=== PATIENT | male | born 1975 | race American Indian/Alaskan Native ===

== ENCOUNTER 2021-12-16 17:28 | Observation (INO) | payer OTHER ==
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
[2021-12-16 18:49] LABS: Basophils % (Auto) 0.4 % (0.0-1.8); Eosinophils % (Auto) 0.3 % (0.0-4.3); Hematocrit 46.9 % (35.5-45.6); Lymphocytes # (Auto) 0.7 K/mm3 (1.2-5.4); Lymphocytes % (Auto) 5.8 % (13.4-35.0); Mean Corpuscular HGB Conc 32 % (32-34); Mean Corpuscular Volume 72 fl (84-94); Monocytes % (Auto) 8.1 % (0.0-7.3); Platelet Count 210 K/mm3 (140-440); Red Cell Distribution Width 14.9 % (13.2-15.2)
[2021-12-16 18:58] LABS: INR 0.93 (0.87-1.13)
[2021-12-16 18:59] LABS: Partial Thromboplastin Time 33.2 Sec. (24.2-36.6)
--- NOTE | 2021-12-16 19:10 | XRay Report ---
CHEST 1 VIEW 12/16/2021 6:52 PM INDICATION / CLINICAL INFORMATION: Dyspnea. COMPARISON: None available. FINDINGS: SUPPORT DEVICES: None. HEART / MEDIASTINUM: No significant abnormality. LUNGS / PLEURA: Bilateral interstitial opacity left greater than right. No pneumothorax. ADDITIONAL FINDINGS: No significant additional findings. IMPRESSION: Interstitial opacity. Edema versus atypical infection. Signer Name: Cortez Higginbotham MD Signed: 12/16/2021 7:06 PM Workstation Name: [id number]
[2021-12-16 19:19] LABS: Alanine Aminotransferase 18 units/L (7-56); Albumin 4.6 g/dL (3.9-5); BUN/Creatinine Ratio 12; Blood Urea Nitrogen 20 mg/dL (9-20); Hemolysis Index 10
--- NOTE | 2021-12-16 20:12 | Cat Scan Report ---
CTA CHEST WITH CONTRAST INDICATION / CLINICAL INFORMATION: hypoxia hemoptysis. TECHNIQUE: Axial CT images were obtained through the chest after injection of IV contrast. 3 plane NM P and/or 3D reconstructions were produced. All CT scans at this location are performed using CT dose reduction for ALARA by means of automated exposure control. COMPARISON: None available. FINDINGS: PULMONARY ARTERIES: No pulmonary emboli. THORACIC AORTA: No significant abnormality. HEART: No significant abnormality. CORONARY ARTERY CALCIFICATION: Mild. MEDIASTINUM / DIONICIO: Mild prominence of mediastinal lymph nodes, likely reactive. PLEURA: No pleural effusion. No pneumothorax. LUNGS: There are scattered groundglass opacities throughout the bilateral lungs, most confluent withi n the bilateral lower lobes. ADDITIONAL FINDINGS: None. UPPER ABDOMEN: No acute findings. SKELETAL STRUCTURES: No significant osseous abnormality. IMPRESSION: 1. No CT evidence for pulmonary embolism. 2. Scattered groundglass opacities which can be seen with atypical infectious process versus diffuse inflammatory process. Signer Name: Shahriar Pham DO Signed: 12/16/2021 8:07 PM Workstation Name: [id number]
[2021-12-16] MEDS ORDERED: ONDANSETRON 4 MG/2 ML INJ IV PRN (22:28)
[2021-12-16] MEDS ORDERED: HYDROmorphone 1 MG/1 ML INJ IV PRN (22:28)
[2021-12-16] MEDS ORDERED: MORPHINE 2 MG/1 ML INJ IV PRN (22:28)
[2021-12-16] MEDS ORDERED: ACETAMINOPHEN 325 MG TAB PO PRN (22:28)
[2021-12-16] MEDS ORDERED: ALBUTEROL 2.5 MG/3 ML NEBU IH PRN (22:28)
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
[2021-12-16] MEDS ORDERED: D5W/0.45% NACL 1,000 ML IV SCH (23:00)
--- NOTE | 2021-12-17 00:56 | Consultation ---
History of Present Illness Consult date: 12/17/21 Past History Past Medical History: hypertension Past Surgical History: No surgical history Social history: no significant social history Family history: hypertension Medications and Allergies Allergies Allergy/AdvReac Type Severity Reaction Status Date / Time No Known Allergies Allergy Unverified 12/16/21 17:38 Active Meds: Active Medications Acetaminophen (Acetaminophen 325 Mg Tab) 650 mg PO Q4H PRN PRN Reason: Pain MILD(1-3)/Fever >100.5/ANDREWS Albuterol (Albuterol 2.5 Mg/3 Ml Nebu) 2.5 mg IH Q3HRT PRN PRN Reason: Shortness Of Breath Albuterol/Ipratropium (Ipratropium/Albuterol Sulfate 3 Ml Ampul.Neb) 1 ampul IH Q6HRT TEOFILO Famotidine (Famotidine 20 Mg/2 Ml Inj) 20 mg IV BID TEOFILO Hydromorphone HCl (Hydromorphone 1 Mg/1 Ml Inj) 0.5 mg IV Q3H PRN PRN Reason: Pain , Severe (7-10) Dextrose/Sodium Chloride (D5/0.45ns) 1,000 mls @ 100 mls/hr IV DIRECT TEOFILO Morphine Sulfate (Morphine 2 Mg/1 Ml Inj) 2 mg IV Q4H PRN PRN Reason: Pain, Moderate (4-6) Ondansetron HCl (Ondansetron 4 Mg/2 Ml Inj) 4 mg IV Q8H PRN PRN Reason: Nausea And Vomiting Sodium Chloride (Sodium Chloride 0.9% 10 Ml Flush Syringe) 10 ml IV BID TEOFILO Sodium Chloride (Sodium Chloride 0.9% 10 Ml Flush Syringe) 10 ml IV PRN PRN PRN Reason: LINE FLUSH Physical Examination Vital signs: Vital Signs Temp Pulse Resp BP Pulse Ox 98.3 F 112 H 22 168/107 86 12/16/21 17:32 12/16/21 17:32 12/16/21 17:32 12/16/21 17:32 12/16/21 17:32 Results - Laboratory Findings CBC and BMP: 12/16/21 18:32 12/16/21 18:32 PT/INR, D-dimer PT 13.5 Sec. (12.2-14.9) 12/16/21 18:32 INR 0.93 (0.87-1.13) 12/16/21 18:32 Abnormal lab findings: Abnormal Labs 12/16/21 12/16/21 18:32 18:32 WBC 12.2 H RBC 6.50 H Hct 46.9 H MCV 72 L MCH 23 L Lymph % (Auto) 5.8 L [place] % (Auto) 8.1 H Lymph # (Auto) 0.7 L [place] # (Auto) 1.0 H Seg Neutrophils % 85.4 H Seg Neutrophils # 10.4 H Creatinine 1.7 H Assessment and Plan 46 y/o overweight male with subjective hemoptysis 1. Needs BP control 2. No current indication for bronch at this time 3. If true hemopytsis with renal disease, may need to have further work up for pulmonary renal disease. Suggest renal consult 4. Repeat imaging in 4-6 weeks 5. Wean FiO2 to off for sats >88% 6. Consider echo while in house but this could be done outpatient
[2021-12-17 04:58] LABS: Basophils % (Auto) 0.4 % (0.0-1.8); Eosinophils # (Auto) 0.1 K/mm3 (0.0-0.4); Eosinophils % (Auto) 0.4 % (0.0-4.3); Hematocrit 46.1 % (35.5-45.6); Hemoglobin 14.7 gm/dl (11.8-15.2); Lymphocytes # (Auto) 1.3 K/mm3 (1.2-5.4); Lymphocytes % (Auto) 10.1 % (13.4-35.0); Mean Corpuscular HGB Conc 32 % (32-34); Mean Corpuscular Volume 72 fl (84-94); Monocytes # (Auto) 1.3 K/mm3 (0.0-0.8); Platelet Count 211 K/mm3 (140-440); Red Blood Count 6.42 M/mm3 (3.65-5.03); Red Cell Distribution Width 14.8 % (13.2-15.2)
[2021-12-17 05:10] LABS: BUN/Creatinine Ratio 13; Blood Urea Nitrogen 20 mg/dL (9-20); Calcium 9.2 mg/dL (8.4-10.2); Hemolysis Index 4
[2021-12-17 05:14] LABS: INR 0.95 (0.87-1.13)
[2021-12-17] MEDS: IPRATROPIUM/ALBUTEROL SULFATE 3 ML AMPUL.NEB IH SCH ×3 (08:25→14:49)
[2021-12-17] MEDS ORDERED: FAMOTIDINE 20 MG/2 ML INJ IV SCH (10:00)
[2021-12-17] MEDS ORDERED: LOSARTAN 50 MG TAB PO SCH (10:00)
--- NOTE | 2021-12-17 10:26 | Electrocardiograph Report ---
[facility] Test Date: 2021-12-16 Test Time: 18:32:49 Pat Name: JEFFERSON FOURNIER Department: Room: [place] [address] Gender: M [employer]: BP : 1975 Requested By: ERNA BOSS Order Number: [id number] Reading MD: Alphonso Plummer Measurements Intervals [place] Rate: 99 P: 37 SC: 132 QRS: 153 QRSD: 82 T: 7 QT: 338 QTc: 433 Interpretive Statements Sinus rhythm Anterior infarct, old No previous ECG available for comparison Electronically Signed On 12-17-2021 10:25:51 EDT by Alphonso Plummer
--- NOTE | 2021-12-17 10:26 | Electrocardiograph Report ---
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
[2021-12-17] MEDS ORDERED: hydrALAZINE 25 MG TAB PO SCH (15:00)
[2021-12-17] MEDS ORDERED: NIFEdipine XL 60 MG TAB PO SCH (15:00)
[2021-12-17 15:20] VITALS: BP 142/87
== END 2021-12-17 16:35 | disposition home or self-care (01) ==
LOC: ED 17:28 → INTOOBSV 22:28 → 4A 22:28
PROVIDERS: ADMIT Hospitalist; ATTEND Student in an Organized Health Care Education/Training Program
DX: J96.01 Acute respiratory failure with hypoxia (principal); D59.9 Acquired hemolytic anemia, unspecified; S27.322A Contusion of lung, bilateral, initial encounter; I10 Essential (primary) hypertension; E66.9 Obesity, unspecified; Z68.31 Body mass index [BMI] 31.0-31.9, adult; Y04.0XXA Assault by unarmed brawl or fight, initial encounter; Y93.89 Activity, other specified; Y92.89 Other specified places as the place of occurrence of the external cause; Y99.8 Other external cause status
CPT/HCPCS: 36415; 71045; 71275; 80048; 80053; 83735; 83880; 84484; 85025; 85610; 85730; 93005; 94640; 96374; 99291; G0378; J3490; Q9967